=== PATIENT | female | born 1940 | race Caucasian/White ===

== ENCOUNTER 2018-12-31 08:40 | Outpatient (CLI) | payer MEDICARE, OTHER ==
--- NOTE | 2019-01-01 09:03 | EEG ---
Referring Physician: MATTHEW HE EEG # [id number] TEST TYPE: ROUTINE OUTPATIENT REPORT: AN EEG USING THE [employer] TEN-TWENTY SYSTEM OF ELECTRODE PLACEMENT WAS PERFORMED. The waking background is a low amplitude 10 hertz Alpha frequency. The patient remained awake throughout the study. Hyperventilation and photic stimulation were unremarkable. No epileptiform features were seen. IMPRESSION; THIS IS A NORMAL AWAKE EEG. System Specialist: GINETTE Demo Coordinator: [email or web address].[email or web address] [email or web address]
== END 2018-12-31 08:41 | disposition home or self-care (01) ==
LOC: EEG 08:40
PROVIDERS: ATTEND Family Medicine
DX: R25.1 Tremor, unspecified (principal); R42 Dizziness and giddiness; R53.1 Weakness; R41.0 Disorientation, unspecified
CPT/HCPCS: 95816